=== PATIENT | female | born 1935 | race Caucasian/White ===

== ENCOUNTER 2018-04-11 00:56 | Inpatient (IN) | payer OTHER ==
[~2018-04-11] VITALS: Ht 154.9 cm; Wt 56.7 kg
[~2018-04-11 00:56] MED LIST: ASPIR 8181 MG PO; CALCIUM 600 +1 EAC1 PO; FISH OIL 1,001000 M2 PO; FLEXERIL PO; LECITHIN400 MG PO; LOVASTAT40 PO; MINIPRIN81 MG; UNICOMPLEX M TA1 TA1 PO
[2018-04-11 01:07] VITALS: BP 160/84
[2018-04-11 01:30] LABS: ABSOLUTE BASOPHILS 0.1 thou/uL (0.0-0.2); ABSOLUTE EOSINOPHILS 0.1 thou/uL (0.0-0.7); ABSOLUTE LYMPHOCYTES 1.4 thou/uL (0.8-5.3); ABSOLUTE MONOCYTES 0.6 thou/uL (0.0-1.2); ABSOLUTE NEUTROPHILS 3.9 thou/uL (1.6-8.1); BASOPHILS 0.8 %; EOSINOPHILS 1.7 %; HEMATOCRIT 39.4 % (37.0-47.0); HEMOGLOBIN 13.3 gm/dL (12.0-15.0); LYMPHOCYTES 23.7 %; MCH 30.3 pg (26.0-34.0); MCHC 33.8 g/dL (28.0-37.0); MCV 89.7 fL (80.0-100.0); MONOCYTES 9.2 %; MPV 8.6 fl. (7.2-11.1); NUCLEATED RBCS 0 /100WBC; PLATELET COUNT* 193 thou/uL (150-400); POLYS 64.6 %; RBC 4.39 mil/uL (4.20-5.00); RDW-CV 13.8 % (10.5-14.5); WBC 6.1 thou/uL (4.0-11.0)
[2018-04-11 01:41] LABS: ANION GAP 6 mmol/L (7-16); BUN 14 mg/dL (7-18); CALCIUM 8.8 mg/dL (8.5-10.1); CHLORIDE 102 mmol/L (98-107); CO2 28 mmol/L (21-32); CREATININE 0.8 mg/dL (0.6-1.3); GLUCOSE 106 mg/dL (70-99); POTASSIUM 3.6 mmol/L (3.5-5.1); SODIUM 136 mmol/L (136-145)
[2018-04-11 01:43] LABS: PROTIME 9.6 Seconds (9.20-11.50)
[2018-04-11 02:02] LABS: ALBUMIN 3.4 g/dL (3.4-5.0); ALKALINE PHOSPHATASE 81 U/L (46-116); LIPASE 80 U/L (73-393); NT-PRO BRAIN NAT PEPTIDE 53 pg/mL (<300); SGOT 14 U/L (15-37); SGPT 16 U/L (30-65); TOTAL BILIRUBIN 0.4 mg/dL (<0.1-1.0); TOTAL PROTEIN 6.8 g/dL (6.4-8.2); TROPONIN-I LEVEL <0.06 ng/mL (<0.06)
[2018-04-11 02:25] LABS: URINE BILIRUBIN NEGATIVE (Negative); URINE BLOOD NEGATIVE (Negative); URINE CLARITY CLEAR; URINE COLOR STRAW; URINE GLUCOSE-RANDOM NEGATIVE (Negative); URINE KETONES NEGATIVE (Negative); URINE LEUKOCYTES-REFLEX NEGATIVE (Negative); URINE NITRITE-REFLEX NEGATIVE (Negative); URINE PROTEIN NEGATIVE (Negative); URINE UROBILINOGEN 0.2 E.U./dl (0.2-1.0)
[2018-04-11 04:00] VITALS: BP 125/66
[2018-04-11 06:52] LABS: CHOLESTEROL 208 mg/dL (<200); HDL CHOLESTEROL 83 mg/dL (>40); LDL CHOLESTEROL 97 mg/dL (<100); TC:HDL 2.5 Ratio (Not establshd); TRIGLYCERIDE 142 mg/dL (<150); VLDL 28 mg/dL (<40)
[2018-04-11 06:55] LABS: SERUM ASSESSMENT Clear
[2018-04-11 07:48] VITALS: BP 127/67
[2018-04-11] MEDS ORDERED: ASPIR 8181 MG PO (14:57)
--- NOTE | 2018-04-11 15:35 | NUR ---
PT TAKEN FOR STRESS TEST WITH CARDIOLGY.
--- NOTE | 2018-04-11 17:17 | EXE ---
[place] [address] STRESS ECHOCARDIOGRAM Name: JACKSON WHITTAKER Room: [address] IN ..#: [id number] Admission: 04/11/18 Attend Phys: Freddy Shirley, Discharge: Date of : 31 Date of Service: 04/11/18 1717 Report #: [id number] THIS REPORT FOR: //name// APPROVED REPORT Study performed: 04/11/2018 16:15:34 Exam: Stress Echocardiogram Indication: Chest pain Patient Location: In-Patient Stress Nurse: Sabrina Tilley RN Room #: ED 17 Supervising Physician: Uriel Ibrahim MD Ht: 5 ft 1 in HR: 71 bpm BP: 137/88 mmHg Medical History Cardiac Risk Factors: Hyperlipidemia Procedure The patient underwent an Exercise Stress Test using the Beto Protocol. Blood pressure, heart rate, and EKG were monitored. An Echocardiogram was performed by target aircraft technician in four stages in quad fashion. At peak stress, four selected images were obtained and placed side by side with resting images for comparison. Stress Test Details Stress Test: Exercise stress testing was performed using a modified Beto protocol. HR Resting HR: 71 bpm Max Heart Rate (APMHR): 135 bpm Max HR Achieved: 158 bpm Target HR (85% APMHR): 114 bpm % of APMHR: 117 Recovery HR: 85 bpm HR response to stress: Normal HR response to stress BP Resting BP: 137/88 mmHg Max BP: 193/97 mmHg Recovery BP: 147/78 mmHg ECG Resting ECG: Sinus Rhythm Stress ECG: no ischemic st-t changes [address] [address] STRESS ECHOCARDIOGRAM Name: JACKSON WHITTAKER Room: [address] IN [facility]#: [id number] Admission: 04/11/18 Attend Phys: Freddy Shirley, Discharge: Date of : 31 Date of Service: 04/11/18 1717 Report #: [id number] Clinical Reason for Termination: Completed protocol, Maximal effort Exercise duration: 3 min 38 sec Highest Stage Achieved: Stage 0.5: 1.7 mph at 5% grade. Exercise capacity: 4.72 METs Pre-Stress Echo The resting Echocardiogram showed normal left ventricular contractility with an estimated Ejection Fraction of about 55-60%. Normal wall motion in all segments on baseline images. Post-Stress Echo The stress Echocardiogram showed normal left ventricular contractility with an estimated Ejection Fraction of about >70%. Normal augmentation of wall motion in all segments on post stress images. Conclusion Clinical Response: Non-ischemic Exercise Capacity: Below Average Stress ECG Response: Non-ischemic Stress Echo Images: Non-ischemic Other Information Study Quality: Good <ELECTRONICALLY SIGNED> By: Uriel Ibrahim MD, [facility] 04/11/18 171 16 16 Uriel Ibrahim MD, [facility] /INF
--- NOTE | 2018-04-11 17:32 | EKG ---
[place] [address] ELECTROCARDIOGRAM REPORT Name: JACKSON WHITTAKER Room: [place] [address] ADM IN M.R.#: [id number] Admission: 04/11/18 Attend Phys: Freddy Shirley MD Discharge: Date of : 31 Report #: [id number] THIS REPORT FOR: //name// [facility] ED Test Date: 2018-04-11 Test Time: 01:03:53 Pat Name: JACKSON WHITTAKER Department: Room: [facility] Gender: F Social Services Aide: [facility] : 1935 Requested By: Leticia Berkowitz Order Number: [id number] MD: Uriel Ibrahim Measurements Intervals [place] Rate: 82 P: 71 AK: 158 QRS: -32 QRSD: 83 T: 58 QT: 403 QTc: 471 Interpretive Statements Sinus rhythm Atrial premature complexes Left axis deviation Compared to ECG 06/11/2016 12:57:35 Atrial premature complex(es) now present Left-axis deviation now present Electronically Signed On 04-11-2018 17:31:49 CDT by Uriel Ibrahim [email or web address] <ELECTRONICALLY SIGNED> By: Uriel Ibrahim MD, [facility] 04/11/18 1731 [id number] Uriel Ibrahim MD, [facility] /EPI
[2018-04-11 17:34] VITALS: BP 124/64
[2018-04-11 17:41] VITALS: BP 124/64
== END 2018-04-11 18:00 | disposition home or self-care (01) | DRG 194 ==
LOC: M.ERS 00:56 → M.TBA-ER 02:54
PROVIDERS: Emergency Medicine; Internal Medicine; ADMIT Internal Medicine
DX: R09.1 Pleurisy (principal); J98.11 Atelectasis; E78.5 Hyperlipidemia, unspecified; R79.1 Abnormal coagulation profile; E78.00 Pure hypercholesterolemia, unspecified; H91.90 Unspecified hearing loss, unspecified ear; Z86.010 Personal history of colon polyps